=== PATIENT | male | born 1995 | race Caucasian/White ===

== ENCOUNTER 2018-08-05 00:13 | Inpatient (IN) | payer BC ==
[2018-08-05 01:22] LABS: Urine Appearance Clear; Urine Bilirubin Negative (Negative); Urine Blood Negative (Negative); Urine Color Yellow; Urine Glucose Negative (Negative); Urine Ketones Negative (Negative); Urine Nitrite Negative (Negative); Urine Protein Negative (Negative); Urine Specific Gravity 1.013 (1.010-1.030); Urine Urobilinogen Negative (Negative)
--- NOTE | 2018-08-05 01:23 | ED ---
Psychiatric Complaint - HPI Summary HPI Summary: 22 year old male presents suicidal ideation today. He states that he started to see [facility] for his anxiety. These prescribed him Klonopin. He states he just was fed up with life today and took all his Klonopin today. He states there was 12 in the jar. He denies any alcohol use. Denies any other drug use. This is his first time he states had suicidal attempt. Denies any other substance that he took. He took his normal Wellbutrin today. Denies any homicidal ideation. Has no medical conditions besides anxiety. He says school is not going well. - History Of Current Complaint Chief Complaint: EDSuicidal Time Seen by Provider: 08/05/18 01:15 - Allergies/Home Medications Allergies/Adverse Reactions: Allergies Allergy/AdvReac Type Severity Reaction Status Date / Time No Known Allergies Allergy Verified 08/05/18 00:17 Home Medications: Home Medications Bupropion XL* [Wellbutrin XL *] 150 mg PO DAILY 08/05/18 [History Confirmed ] clonazePAM [Clonazepam] 1 tab PO BID 08/05/18 [History Confirmed 08/05/18] PMH/Surg Hx/FS Hx/Imm Hx Endocrine/Hematology History: Denies: Hx Anticoagulant Therapy Respiratory History: Denies: Hx Asthma Infectious Disease History: No Infectious Disease History: Denies: Traveled Outside the [place] in Last 30 Days - Family History Known Family History: Positive: Non-Contributory - Social History Alcohol Use: Occasionally Substance Use Type: Reports: Marijuana Smoking Status (MU): Never Smoked Tobacco Review of Systems Negative: Fever Negative: Chest Pain Negative: Shortness Of Breath Positive: Depressed All Other Systems Reviewed And Are Negative: Yes Physical Exam Triage Information Reviewed: Yes Vital Signs On Initial Exam: Initial Vitals Temp Pulse Resp BP Pulse Ox 97.8 F 92 18 134/86 96 08/05/18 00:14 08/05/18 00:14 08/05/18 00:14 08/05/18 00:14 08/05/18 00:14 Vital Signs Reviewed: Yes Appearance: Positive: Well-Appearing Skin: Positive: Warm, Dry Head/Face: Positive: Normal Head/Face Inspection Eyes: Positive: Normal, Conjunctiva Clear ENT: Positive: Pharynx normal Respiratory/Lung Sounds: Positive: Clear to Auscultation, Breath Sounds Present Cardiovascular: Positive: Normal, RRR Abdomen Description: Positive: Nontender, Soft Bowel Sounds: Positive: Present Musculoskeletal: Positive: Normal Neurological: Positive: Normal Psychiatric: Positive: Normal Diagnostics - Vital Signs Vital Signs Temp Pulse Resp BP Pulse Ox 08/05/18 00:14 97.8 F 92 18 134/86 96 - Laboratory Result Diagrams: 08/05/18 01:21 08/05/18 01:21 Lab Statement: Any lab studies that have been ordered have been reviewed, and results considered in the medical decision making process. - EKG No standard instances Cardiac Rate: Bradycardia EKG Rhythm: Sinus Bradycardia Summary of EKG Findings: sinus bradycardia, early repolization Course/Dx - Course Course Of Treatment: 22 year old male presents suicidal ideation today. He states that he started to see [facility] for his anxiety. These prescribed him Klonopin. He states he just was fed up with life today and took all his Klonopin today. He states there was 12 in the jar. He denies any alcohol use. Denies any other drug use. This is his first time he states had suicidal attempt. Denies any other substance that he took. He took his normal Wellbutrin today. Denies any homicidal ideation. Has no medical conditions besides anxiety. He says school is not going well. On exam patient is lethargic but arousable. Otherwise normal physical exam. Patient will be signed out to Dr. ibarra pending mental health evaluation. - Differential Dx/Clinical Impression Differential Diagnosis/HQI/PQRI: Positive: Depression, Drug Overdose/ Unintentional, Suicidal Ideation, Suicidal Gesture Provider Diagnosis: Major depressive disorder Discharge - Sign-Out/Discharge Documenting (check all that apply): Sign-Out Patient Signing out patient TO: Gabo Ibarra - Discharge Plan Condition: Stable [facility] [place] Billing Disposition and Condition Condition: STABLE Disposition: Psychiatric Facility [facility] [place]
[2018-08-05 01:32] LABS: Urine Benzodiazepine Screen Presumptive Positive (None Detect); Urine Opiates Screen None Detected (None Detect)
[2018-08-05 01:36] LABS: ABS Basophils 0.1 10^3/ul (0-0.2); ABS Eosinophils 0.3 10^3/ul (0-0.6); ABS Lymphocytes 3.2 10^3/ul (1.0-4.8); ABS Monocytes 0.6 10^3/ul (0-0.8); ABS Neutrophils 5.1 10^3/ul (1.5-7.7); ABS Nucleated RBC 0 10^3/ul; Eosinophil % 2.7 %; Hematocrit 42 % (36-46); Hemoglobin 14.2 g/dL (14.0-18.0); Lymphocyte % 34.8 %; Mean Corpuscular HGB Conc 34 g/dL (31-36); Mean Corpuscular Hemoglobin 28 pg (27-31); Mean Corpuscular Volume 82 fL (80-94); Mean Platelet Volume 7.3 fL (7.4-10.4); Nucleated Red Blood Cells % 0.1; Platelet Count 268 10^3/uL (150-450); Red Blood Count 5.07 10^6 /uL (4.18-5.48); Red Cell Distribution Width 14 % (10.5-15); White Blood Count 9.2 10^3/uL (3.5-10.8)
[2018-08-05 01:53] LABS: ALT 85 U/L (7-52); AST 30 U/L (13-39); Acetaminophen < 15 mcg/mL; Albumin 3.9 g/dL (3.2-5.2); Albumin/Globulin Ratio 1.4 (1-3); Alcohol < 10 mg/dL (<10); Alkaline Phosphatase 56 U/L (34-104); Anion Gap 8 mmol/L (2-11); BUN/Creatinine Ratio 14.5 (8-20); Blood Urea Nitrogen 12 mg/dL (6-24); CO2 Carbon Dioxide 23 mmol/L (22-32); Calcium 8.9 mg/dL (8.6-10.3); Chloride 107 mmol/L (101-111); EGFR African American 142.9 (>60); EGFR Non-African American 118.1 (>60); Globulin 2.8 g/dL (2-4); Glucose 83 mg/dL (70-100); Potassium 3.8 mmol/L (3.5-5.0); Salicylate < 2.50 mg/dL (<30); Sodium 138 mmol/L (135-145); Total Protein 6.7 g/dL (6.4-8.9)
[2018-08-05 02:08] LABS: TSH (Thyroid Stimulating Horm) 3.12 mcIU/mL (0.34-5.60)
[2018-08-05 02:38] LABS: Troponin I 0.01 ng/mL (<0.04)
--- NOTE | 2018-08-05 03:57 | ED ---
Progress - Progress Note Progress Note: Patient is received as a sign out from STANLEY Yi at 0230 08/05/18 shift end pending MHE and disposition of this MH patient. No changes in the status of this MH patient over the course of the shift. The patient will be signed out to Dr. Hart at 0700 08/05/18 shift change pending MHE, and disposition of this MH patient. Course/Dx - Course Course Of Treatment: Patient is received as a sign out from STANLEY Yi at 0230 08/05/18 shift end pending MHE and disposition of this MH patient. No changes in the status of this MH patient over the course of the shift. The patient [place] [address]/05/18 shift change pending MHE and disposition of this patient. - Diagnoses Provider Diagnoses: Major depressive disorder Discharge - Sign-Out/Discharge Documenting (check all that apply): Sign-Out Patient Signing out patient TO: Gracie Hart - Discharge Plan Condition: Stable Disposition: [facility]IATRIC FACILITY[place] – [place], [place] - Billing Disposition and Condition Condition: STABLE Disposition: Psychiatric Facility [facility] [place] - Attestation Statements Document Initiated by Greggibe: Yes Documenting Scribe: LIZZ CAMARENA Provider For Whom Dhara is Documenting (Include Credential): JULY ULLOA MD Scribe Attestation: LIZZ Villasenor scribed for JULY ULLOA MD on 08/10/18 at 0342. Scribe Documentation Reviewed: Yes Provider Attestation: The documentation as recorded by the LIZZ woodson accurately reflects the service I personally performed and the decisions made by , JULY ULLOA MD Status of Scribe Document: Viewed
--- NOTE | 2018-08-05 07:08 | PN ---
ED Flex Patient Progress Note Date of Service: 08/04/18 Subjective: This is a 22 year-old M who is pending admission to [facility] / transfer to another psychiatric facility / discharge to home / or being observed secondary to overdose on klonopin. Pt. examined in room 15 at 0700. He is sleeping comfortably. 1:1 outside of room. Awoke easily without complaints. Objective: Vitals: Most recent vital signs documented below. General NAD Laboratory: Current laboratory results documented below. Assessment: OD Plan: Pending MHE. Vital Signs Temp Pulse Resp BP Pulse Ox 97.8 F 84 17 117/74 92 08/05/18 00:14 08/05/18 03:21 08/05/18 04:00 08/05/18 03:51 08/05/18 03:21 Lab Results - Entire Visit 08/05/18 08/05/18 08/05/18 01:21 01:21 00:58 WBC 9.2 RBC 5.07 Hgb 14.2 Hct 42 MCV 82 MCH 28 MCHC 34 RDW 14 Plt Count 268 MPV 7.3 L Neut % (Auto) 55.5 Lymph % (Auto) 34.8 [place] % (Auto) 6.5 Eos % (Auto) 2.7 Baso % (Auto) 0.5 Absolute Neuts (auto) 5.1 Absolute Lymphs (auto) 3.2 Absolute Monos (auto) 0.6 Absolute Eos (auto) 0.3 Absolute Basos (auto) 0.1 Absolute Nucleated RBC 0 Nucleated RBC % 0.1 Sodium 138 Potassium 3.8 Chloride 107 Carbon Dioxide 23 Anion Gap 8 BUN 12 Creatinine 0.83 Est GFR ( Amer) 142.9 Est GFR (Non-Af Amer) 118.1 BUN/Creatinine Ratio 14.5 Glucose 83 Calcium 8.9 Total Bilirubin 0.40 AST 30 ALT 85 H Alkaline Phosphatase 56 Troponin I 0.01 Total Protein 6.7 Albumin 3.9 Globulin 2.8 Albumin/Globulin Ratio 1.4 TSH 3.12 Urine Color Urine Appearance Urine pH Ur Specific [place] Urine Protein Urine Ketones Urine Blood Urine Nitrate Urine Bilirubin Urine Urobilinogen Ur Leukocyte Esterase Urine Glucose Salicylates < 2.50 Urine Opiates Screen None detected Acetaminophen < 15 Ur Barbiturates Screen None detected Ur Phencyclidine Scrn None detected Ur Amphetamines Screen None detected U Benzodiazepines Scrn Presumptive positive A Urine Cocaine Screen None detected U Cannabinoids Screen Presumptive positive A Serum Alcohol < 10 08/05/18 00:58 WBC RBC Hgb Hct MCV MCH MCHC RDW Plt Count MPV Neut % (Auto) Lymph % (Auto) [place] % (Auto) Eos % (Auto) Baso % (Auto) Absolute Neuts (auto) Absolute Lymphs (auto) Absolute Monos (auto) Absolute Eos (auto) Absolute Basos (auto) Absolute Nucleated RBC Nucleated RBC % Sodium Potassium Chloride Carbon Dioxide Anion Gap BUN Creatinine Est GFR ( Amer) Est GFR (Non-Af Amer) BUN/Creatinine Ratio Glucose Calcium Total Bilirubin AST ALT Alkaline Phosphatase Troponin I Total Protein Albumin Globulin Albumin/Globulin Ratio TSH Urine Color Yellow Urine Appearance Clear Urine pH 5.0 Ur Specific [place] 1.013 Urine Protein Negative Urine Ketones Negative Urine Blood Negative Urine Nitrate Negative Urine Bilirubin Negative Urine Urobilinogen Negative Ur Leukocyte Esterase Negative Urine Glucose Negative Salicylates Urine Opiates Screen Acetaminophen Ur Barbiturates Screen Ur Phencyclidine Scrn Ur Amphetamines Screen U Benzodiazepines Scrn Urine Cocaine Screen U Cannabinoids Screen Serum Alcohol
--- NOTE | 2018-08-05 08:03 | ED ---
Progress - Progress Note Progress Note: Pt is a 22 y/o M signed out from Dr. Scanlon at 0700 on 08/05/18 pending MHE after Klonopin overdose, 12x1mg tabs.. Home Medications Medication Instructions Recorded Confirmed Type Bupropion XL* [Wellbutrin XL *] 150 mg PO DAILY 08/05/18 08/05/18 History clonazePAM [Clonazepam] 1 tab PO BID 08/05/18 08/05/18 History Course/Dx - Course Course Of Treatment: Pt is a 22 y/o M signed out from Dr. Scanlon at 0700 on 08/05 pending MHE. As of 899, the pt is denying SI, and Dr. Loera wanted to speak to his parents. The pt will be involuntarily admitted on a 9.39 status. - Diagnoses Provider Diagnoses: Major depressive disorder Discharge - Sign-Out/Discharge Documenting (check all that apply): Patient Departure, Receiving Sign-Out Receiving patient FROM: Gabo Scanlon - Discharge Plan Condition: Stable [place] [place]illing Disposition and Condition Condition: STABLE Disposition: [place] [facility] [place] Attestation Statements Document Initiated by Greggibe: Yes Documenting Scribe: Tamika Milian Provider For Whom Dhara is Documenting (Include Credential): Dr. Gracie Hart MD. Scribe Attestation: Tamika Villasenor scribed for Dr. Gracie Hart MD. on 08/05/18 at 2132. Scribe Documentation Reviewed: Yes Provider Attestation: The documentation as recorded by the Tamika woodson accurately reflects the service I personally performed and the decisions made by , Dr. Gracie Hart MD. Status of Scribe Document: Viewed
[2018-08-05] MEDS ORDERED: Acetaminophen TAB* 325 MG PO PRN (12:04)
[2018-08-05] MEDS ORDERED: Al Hydrox/Mg Hydrox/Simet LIQ* 30 ML UDC PO PRN (12:04)
[2018-08-06 08:20] LABS: HDL Cholesterol 29.3 mg/dL
[2018-08-06] MEDS: BuPROPion XL* 150 MG TAB.XL PO SCH (08:54)
--- NOTE | 2018-08-06 12:17 | HP ---
H&P (Free Text) History and Physical: Justification for admission: Immediate Safety. CC " I took pills" The patient was brought to [facility] by his roommate after he took the rest of his klonopin pills (#12) in attempt to end his life. He reported access to firearms at home in [place], not at school in [place]. For the last month he reported not hanging out with friends or enjoying doing things outside. He reports feeling the most down he has ever felt. He reported sleeping most the day and lacks energy or motivation to do anything. The patient denied homicidal ideation intent or plan. The patient denied auditory and/ or visual hallucinations. MDD Reported feeling depressed while having diminished interest in hobbies or interests which were present in the past , for most of the time, lasting more than 2 weeks. Reported having crying spells , feeling empty inside, feelings of hopelessness. He reported having decreased concentration and recurrent thoughts of with feeling no purpose in life and thinks he would be better off . Bipolar Denied symptoms of lucia such as having many ideas at once. Denied increased talkativeness where no one can interrupt. Denied feeling irritable most of the time while having an persistent abundance of energy most of the day without the use of energy drinks, stimulants, or recreational drug use. Denied an increase in intensity in goal directed activities. Denied having the decreased need to sleep for days , having prolonged elevated heighted mood , or feeling on top of the world. Denied impulsive risky sexual encounters. Denied spending money recklessly , going on spending sprees wiping out savings. Denied impulsively traveling out of town or country, having super witt, and unrealistic wealth or fame. Anxiety Patient reported anxiety in social settings and fears of what others think of him. Denied having symptoms of anxiety such as having times where heart feels that it is beating out of chest , sweaty palms, or shallow breathing. Denied having uncomfortable or intrusive thoughts. Denied feeling restless, high strung, or worrying too much most of the time. Psychosis Does not endorse hearing things that other people do not hear or seeing things other people do not see. Denied feeling that TV is making references. Denied feeling that people are spying , following , or reading their thoughts. Phobias: Patient denied having excessive fear of a particular thing or situation. Eating disorders: Patient denied having excessive eating habits or feelings of guilt after eating. Denied repeated episodes of self induced vomiting after eating. PTSD Denied flashbacks, nightmares and avoidance of a prior traumatic event. PAST PSYCHIATRIC HISTORY: Prior Diagnosis : Major Depressive Disorder History of past Psychiatric Hospitalizations: No prior psychiatric admission. History of past suicide/homicide attempts : Denied past suicide attempts. Denied past homicidal incidents. Outpatient follow-up: [employer] counseling services with . Medications: Past trials of medications include wellbutrin 150mg daily and klonopin both started a week ago. Guardianship: None. FAMILY HISTORY: - Suicide: Denied family history of suicide. - Mental illness: Denied a history of mental health in immediate family members. - Substance abuse: Denied substance abuse among family members. SUBSTANCE ABUSE HISTORY: Denied using alcohol, tobacco, heroin and cocaine other illicit substances. Denied abusing pills not prescribed . Denied past Substance abuse treatment. -Cannabis: uses once daily for the last couple of years SOCIAL HISTORY: Born in and raised in [place]. Raised by both parents. 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 Single no children and lives on campus at [employer]. No sexual or physical abuse. - Legal history: Denied - service history: Denied PAST MEDICAL HISTORY: Denied heart disease, diabetes, cancer and/ or other medical conditions. Since last week reported having elevated liver enzymes. - Allergies: Denied drug or other allergies. Physical Exam: Please see ED note Mental Status Exam on Admission APPEARANCE : 22 year old male who appears stated age. Patient is malodourous, and appears to have fair hygiene and grooming. BEHAVIOR: Cooperative , calm EYE CONTACT: Fair PSYCHOMOTOR ACTIVITY: No psychomotor agitation or retardation. MOVEMENTS: No abnormal movements observed. SPEECH : Normal rate, rhythm, volume and tone. MOOD : "Sad " AFFECT : Type is depressed Range is blunted with shallow depth Mood congruent, Stable THOUGHT PROCESS: formulated and organized in a logical, linear goal directed manner. No flight of ideas , neologism (made up words) , perseveration , tangential , loose associations , or circumstantiality. THOUGHT CONTENT: no delusions, preoccupations, obsessions, phobias or preoccupations. PERCEPTION: No current auditory or visual hallucinations. Doesnt appear to be responding to internal cues. No evidence of depersonalization , de-realization, or illusions SUICIDALITY Recent suicidal attempt HOMICIDALITY Denied homicidal ideation, intent or plan. Insight/judgment: Poor insight and judgment ORIENTATION: Oriented to self, location, and time. Diagnosis on Admission: Major depressive Disorder, severe. Social Anxiety Disorder. Assessment: 22year old male with history of depression came to the hospital after overdosing on klonopin and was admitted to the B[facility] at [facility]. Plan #Admit to BSU, Q15 minute observation. Start regular diet. Encourage participation in activities on the milieu. #Patient evaluated in ED and was determined by the emergency room Physician to be medically stable for admission to the BSU. # Justification for Admission: For immediate safety per outlined in the [facility] Hy[facility] Code. # Voluntary admission. The patient requires inpatient admission at this time to assure safety, receive treatment and work toward stabilization. # Labs ordered: CBC, CMP, UDS, TSH, HBA1c, TSH, Toxicology screen, Urine analysis, and lipid profile. # Start paxil 10mg and resume wellbutrin 150mg daily # ALT 85 # Medicine team notified of lab and abnormal ekg findings. Repeat of ALT and ordered Hepatitis panel. # Obtain collateral information once release is signed. # Collaboration with Social Work to assist with disposition and after care. Substance Abuse and Tobacco resources not applicable #Goals before discharge include: eradicate suicidal ideation and improve mood. The risks, benefits, and alternative treatment options were discussed as well as of the risks of refusing treatment. After this discussion and an acknowledgement of this understanding was made. A risk/ benefit assessment of treatment was considered and discussed with the patient. When comparing the risks of treatment with the dangers of not receiving treatment, the benefits of treatment outweigh the treatment risks at this time. Risks of suicidal ideation , behavioral changes, dystonia, movement disorders, cardiac conduction changes , serotonin syndrome, metabolic risks and NMS were among some of the risks discussed. 08/05/18 08/05/18 08/05/18 00:58 00:58 01:21 WBC 9.2 RBC 5.07 Hgb 14.2 Hct 42 MCV 82 MCH 28 MCHC 34 RDW 14 Plt Count 268 MPV 7.3 L Neut % (Auto) 55.5 Lymph % (Auto) 34.8 [place] % (Auto) 6.5 Eos % (Auto) 2.7 Baso % (Auto) 0.5 Absolute Neuts (auto) 5.1 Absolute Lymphs (auto) 3.2 Absolute Monos (auto) 0.6 Absolute Eos (auto) 0.3 Absolute Basos (auto) 0.1 Absolute Nucleated RBC 0 Nucleated RBC % 0.1 Sodium Potassium Chloride Carbon Dioxide Anion Gap BUN Creatinine Est GFR ( Amer) Est GFR (Non-Af Amer) BUN/Creatinine Ratio Glucose Hemoglobin A1c Calcium Total Bilirubin AST ALT Alkaline Phosphatase Troponin I Total Protein Albumin Globulin Albumin/Globulin Ratio Triglycerides Cholesterol LDL Cholesterol HDL Cholesterol TSH Urine Color Yellow Urine Appearance Clear Urine pH 5.0 Ur Specific [place] 1.013 Urine Protein Negative Urine Ketones Negative Urine Blood Negative Urine Nitrate Negative Urine Bilirubin Negative Urine Urobilinogen Negative Ur Leukocyte Esterase Negative Urine Glucose Negative Salicylates Urine Opiates Screen None detected Acetaminophen Ur Barbiturates Screen None detected Ur Phencyclidine Scrn None detected Ur Amphetamines Screen None detected U Benzodiazepines Scrn Presumptive positive A Urine Cocaine Screen None detected U Cannabinoids Screen Presumptive positive A Serum Alcohol 08/05/18 08/06/18 08/06/18 01:21 07:41 07:41 WBC RBC Hgb Hct MCV MCH MCHC RDW Plt Count MPV Neut % (Auto) Lymph % (Auto) [place] % (Auto) Eos % (Auto) Baso % (Auto) Absolute Neuts (auto) Absolute Lymphs (auto) Absolute Monos (auto) Absolute Eos (auto) Absolute Basos (auto) Absolute Nucleated RBC Nucleated RBC % Sodium 138 Potassium 3.8 Chloride 107 Carbon Dioxide 23 Anion Gap 8 BUN 12 Creatinine 0.83 Est GFR ( Amer) 142.9 Est GFR (Non-Af Amer) 118.1 BUN/Creatinine Ratio 14.5 Glucose 83 Hemoglobin A1c 5.6 Calcium 8.9 Total Bilirubin 0.40 AST 30 ALT 85 H Alkaline Phosphatase 56 Troponin I 0.01 Total Protein 6.7 Albumin 3.9 Globulin 2.8 Albumin/Globulin Ratio 1.4 Triglycerides 200 Cholesterol 157 LDL Cholesterol 88 HDL Cholesterol 29.3 TSH 3.12 Urine Color Urine Appearance Urine pH Ur Specific [place] Urine Protein Urine Ketones Urine Blood Urine Nitrate Urine Bilirubin Urine Urobilinogen Ur Leukocyte Esterase Urine Glucose Salicylates < 2.50 Urine Opiates Screen Acetaminophen < 15 Ur Barbiturates Screen Ur Phencyclidine Scrn Ur Amphetamines Screen U Benzodiazepines Scrn Urine Cocaine Screen U Cannabinoids Screen Serum Alcohol < 10
[2018-08-06] MEDS: PARoxetine HCL TAB* 10 MG PO SCH (15:23)
[2018-08-06] MEDS: hydrOXYzine HCL TAB* 50 MG PO PRN (17:20)
[2018-08-07] MEDS: BuPROPion XL* 150 MG TAB.XL PO SCH (09:50)
[2018-08-07] MEDS: PARoxetine HCL TAB* 10 MG PO SCH (09:50)
[2018-08-07 11:35] LABS: Hepatitis B Surface Antigen Nonreactive (Nonreactive)
--- NOTE | 2018-08-07 11:45 | PN ---
Subjective - Subjective Date of Service: 08/07/18 Service Type: [id number] Hosp care 35 min high complexity Subjective: Nursing Report: Patient was visible on unit, no chemical restraints or PRNs. Slept overnight without incident. He is attending group activities. CC: "okay Patient was seen and evaluated in his room. The patient reported he feels safe on the unit and is interacting with peers. He reported having an adequate appetite and sleep. The patient reports attending and participating in day groups. Per nursing no behavioral issues or overnight events reported. Patient reported that he is tolerating medications without side effects. Objective - General Observations Appearance: Disheveled, Neat Appears Stated Age: Yes Stature: WNL, Overweight Posture: Slumped Eye Contact: Average Behavior/Activity: WNL - Interaction Observations Attitude Towards Examiner: Cooperative Stated Mood: Dysphoric Affect: Blunted Speech Pattern/Tone: Clear Thought Process: Coherent Perception: WNL Thought Content: WNL Thought Process: Lethality: Passive Wish Hallucination Type: None Delusion Type: None - Cognitive Function Orientation: A&O x 4 Level of Consciousness: Awake Cognition: WNL Judgment Within Normal Limits: No Ability to Make Reasonable Decisions: Mildly Impaired - Medication Compliance Cooperative with Inpatient Medication Regimen: Yes - Group Participation Participates in Group Activities: Partial Assessment - Assessment Merits Inpatient Hospitalization: For Immediate Safety Clinical Impression: 22 year old male presented to the emergency room after suicide attempt of overdosing on klonopin Plan - Plan Treatment Plan: Name: JEANNE MAR Birthdate: 1995 [id number] #Q30, staff pass # Voluntary admission. The patient requires inpatient admission at this time to assure safety, receive treatment and work toward stabilization. Family meeting for Friday # Obtain collateral information once release is signed. # Collaboration with Social Work to assist with disposition and after care. # ALT 90 Lock box for medications and remove firearms Hepatitis panel is negative. Continue current medications increase paxil to 20mg daily Vital Signs Temp Pulse Resp BP Pulse Ox 97.2 F 70 18 125/86 100 08/07/18 07:33 08/07/18 07:33 08/07/18 07:33 08/07/18 07:33 08/07/18 07:33 Laboratory Tests 08/05/18 08/05/18 08/05/18 00:58 00:58 01:21 WBC 9.2 RBC 5.07 Hgb 14.2 Hct 42 MCV 82 MCH 28 MCHC 34 RDW 14 Plt Count 268 MPV 7.3 L Neut % (Auto) 55.5 Lymph % (Auto) 34.8 [place] % (Auto) 6.5 Eos % (Auto) 2.7 Baso % (Auto) 0.5 Absolute Neuts (auto) 5.1 Absolute Lymphs (auto) 3.2 Absolute Monos (auto) 0.6 Absolute Eos (auto) 0.3 Absolute Basos (auto) 0.1 Absolute Nucleated RBC 0 Nucleated RBC % 0.1 Sodium Potassium Chloride Carbon Dioxide Anion Gap BUN Creatinine Est GFR ( Amer) Est GFR (Non-Af Amer) BUN/Creatinine Ratio Glucose Hemoglobin A1c Calcium Total Bilirubin AST ALT Alkaline Phosphatase Troponin I Total Protein Albumin Globulin Albumin/Globulin Ratio Triglycerides Cholesterol LDL Cholesterol HDL Cholesterol TSH Urine Color Yellow Urine Appearance Clear Urine pH 5.0 Ur Specific [place] 1.013 Urine Protein Negative Urine Ketones Negative Urine Blood Negative Urine Nitrate Negative Urine Bilirubin Negative Urine Urobilinogen Negative Ur Leukocyte Esterase Negative Urine Glucose Negative Salicylates Urine Opiates Screen None detected Acetaminophen Ur Barbiturates Screen None detected Ur Phencyclidine Scrn None detected Ur Amphetamines Screen None detected U Benzodiazepines Scrn Presumptive positive A Urine Cocaine Screen None detected U Cannabinoids Screen Presumptive positive A Serum Alcohol Hepatitis A IgM Ab Hep Bs Antigen Hep B Core IgM Ab Hepatitis C Antibody Hepatitis C Ab Index 08/05/18 08/06/18 08/06/18 01:21 07:41 07:41 WBC RBC Hgb Hct MCV MCH MCHC RDW Plt Count MPV Neut % (Auto) Lymph % (Auto) [place] % (Auto) Eos % (Auto) Baso % (Auto) Absolute Neuts (auto) Absolute Lymphs (auto) Absolute Monos (auto) Absolute Eos (auto) Absolute Basos (auto) Absolute Nucleated RBC Nucleated RBC % Sodium 138 Potassium 3.8 Chloride 107 Carbon Dioxide 23 Anion Gap 8 BUN 12 Creatinine 0.83 Est GFR ( Amer) 142.9 Est GFR (Non-Af Amer) 118.1 BUN/Creatinine Ratio 14.5 Glucose 83 Hemoglobin A1c 5.6 Calcium 8.9 Total Bilirubin 0.40 AST 30 ALT 85 H Alkaline Phosphatase 56 Troponin I 0.01 Total Protein 6.7 Albumin 3.9 Globulin 2.8 Albumin/Globulin Ratio 1.4 Triglycerides 200 Cholesterol 157 LDL Cholesterol 88 HDL Cholesterol 29.3 TSH 3.12 Urine Color Urine Appearance Urine pH Ur Specific [place] Urine Protein Urine Ketones Urine Blood Urine Nitrate Urine Bilirubin Urine Urobilinogen Ur Leukocyte Esterase Urine Glucose Salicylates < 2.50 Urine Opiates Screen Acetaminophen < 15 Ur Barbiturates Screen Ur Phencyclidine Scrn Ur Amphetamines Screen U Benzodiazepines Scrn Urine Cocaine Screen U Cannabinoids Screen Serum Alcohol < 10 Hepatitis A IgM Ab Hep Bs Antigen Hep B Core IgM Ab Hepatitis C Antibody Hepatitis C Ab Index 08/07/18 08/07/18 06:58 06:58 WBC RBC Hgb Hct MCV MCH MCHC RDW Plt Count MPV Neut % (Auto) Lymph % (Auto) [place] % (Auto) Eos % (Auto) Baso % (Auto) Absolute Neuts (auto) Absolute Lymphs (auto) Absolute Monos (auto) Absolute Eos (auto) Absolute Basos (auto) Absolute Nucleated RBC Nucleated RBC % Sodium Potassium Chloride Carbon Dioxide Anion Gap BUN Creatinine Est GFR ( Amer) Est GFR (Non-Af Amer) BUN/Creatinine Ratio Glucose Hemoglobin A1c Calcium Total Bilirubin AST ALT 90 H Alkaline Phosphatase Troponin I Total Protein Albumin Globulin Albumin/Globulin Ratio Triglycerides Cholesterol LDL Cholesterol HDL Cholesterol TSH Urine Color Urine Appearance Urine pH Ur Specific [place] Urine Protein Urine Ketones Urine Blood Urine Nitrate Urine Bilirubin Urine Urobilinogen Ur Leukocyte Esterase Urine Glucose Salicylates Urine Opiates Screen Acetaminophen Ur Barbiturates Screen Ur Phencyclidine Scrn Ur Amphetamines Screen U Benzodiazepines Scrn Urine Cocaine Screen U Cannabinoids Screen Serum Alcohol Hepatitis A IgM Ab Nonreactive Hep Bs Antigen Nonreactive Hep B Core IgM Ab Nonreactive Hepatitis C Antibody Nonreactive Hepatitis C Ab Index 0.0 Continued Medication Management: Continue Outpt Medication Medications: Current Medications Acetaminophen (Tylenol Tab*) 650 mg PO Q4H PRN PRN Reason: for pain; or Temp >101 F Al Hydrox/Mg Hydrox/Simethicone (Maalox Plus*) 30 ml PO Q4H PRN PRN Reason: INDIGESTION Bupropion HCl (Wellbutrin Xl *) 150 mg PO DAILY [facility] Last Admin: 08/07/18 09:50 Dose: 150 mg Hydroxyzine HCl (Atarax Tab*) 50 mg PO Q6H PRN PRN Reason: ANXIETY Last Admin: 08/06/18 17:20 Dose: 50 mg Paroxetine HCl (Paxil Tab*) 10 mg PO DAILY [facility]ANE Last Admin: 08/07/18 09:50 Dose: 10 mg - Discharge Plan Discharge Plan: Inpatient Hospitalization
[2018-08-07 12:01] LABS: Hepatitis C Antibody Nonreactive (Nonreactive)
[2018-08-08] MEDS: BuPROPion XL* 150 MG TAB.XL PO SCH (10:23)
[2018-08-08] MEDS: PARoxetine HCL TAB* 20 MG PO SCH (10:23)
[2018-08-09] MEDS: BuPROPion XL* 150 MG TAB.XL PO SCH (09:03)
[2018-08-09] MEDS: PARoxetine HCL TAB* 20 MG PO SCH (09:03)
--- NOTE | 2018-08-09 17:24 | PN ---
Subjective - Subjective Date of Service: 08/09/18 Service Type: 50858 Hosp care 15 min low complexity Subjective: Jeanne didn't have any psychiatric complaints today and denies mood, thoughts or perceptual disturbances. Couldn't sleep well last night due to thinking too much. Denies SI or HI. Taking and tolerating meds well. Objective - General Observations Appearance: Neat, Well Groomed Appears Stated Age: Yes Stature: WNL Posture: WNL Eye Contact: Average Behavior/Activity: WNL - Interaction Observations Attitude Towards Examiner: Cooperative Stated Mood: Euthymic Affect: Full Speech Pattern/Tone: Clear, Appropriate, Normal Volume Thought Process: Coherent, Goal Directed Perception: WNL Thought Content: WNL Hallucination Type: None Delusion Type: None - Cognitive Function Orientation: A&O x 4 Level of Consciousness: Awake, Alert Cognition: WNL Estimated Intelligence: Normal Insight: WNL Judgment Within Normal Limits: Yes - Medication Compliance Cooperative with Inpatient Medication Regimen: Yes - Group Participation Participates in Group Activities: Yes Assessment - Assessment Merits Inpatient Hospitalization: Consolidate Improvements, For Discharge Planning Clinical Impression: 22 year old male presented to the emergency room after suicide attempt of overdosing on klonopin Plan - Plan Treatment Plan: Name: JEANNE MAR Birthdate: 1995 [id number] #Q30, staff pass # Voluntary admission. The patient requires inpatient admission at this time to assure safety, receive treatment and work toward stabilization. Family meeting for Friday # Obtain collateral information once release is signed. # Collaboration with Social Work to assist with disposition and after care. # ALT 90 Lock box for medications and remove firearms Hepatitis panel is negative. Continue current medications increase paxil to 20mg daily Vital Signs Temp Pulse Resp BP Pulse Ox 97.2 F 70 18 125/86 100 08/07/18 07:33 08/07/18 07:33 08/07/18 07:33 08/07/18 07:33 08/07/18 07:33 Laboratory Tests 08/05/18 08/05/18 08/05/18 00:58 00:58 01:21 WBC 9.2 RBC 5.07 Hgb 14.2 Hct 42 MCV 82 MCH 28 MCHC 34 RDW 14 Plt Count 268 MPV 7.3 L Neut % (Auto) 55.5 Lymph % (Auto) 34.8 [place] % (Auto) 6.5 Eos % (Auto) 2.7 Baso % (Auto) 0.5 Absolute Neuts (auto) 5.1 Absolute Lymphs (auto) 3.2 Absolute Monos (auto) 0.6 Absolute Eos (auto) 0.3 Absolute Basos (auto) 0.1 Absolute Nucleated RBC 0 Nucleated RBC % 0.1 Sodium Potassium Chloride Carbon Dioxide Anion Gap BUN Creatinine Est GFR ( Amer) Est GFR (Non-Af Amer) BUN/Creatinine Ratio Glucose Hemoglobin A1c Calcium Total Bilirubin AST ALT Alkaline Phosphatase Troponin I Total Protein Albumin Globulin Albumin/Globulin Ratio Triglycerides Cholesterol LDL Cholesterol HDL Cholesterol TSH Urine Color Yellow Urine Appearance Clear Urine pH 5.0 Ur Specific [place] 1.013 Urine Protein Negative Urine Ketones Negative Urine Blood Negative Urine Nitrate Negative Urine Bilirubin Negative Urine Urobilinogen Negative Ur Leukocyte Esterase Negative Urine Glucose Negative Salicylates Urine Opiates Screen None detected Acetaminophen Ur Barbiturates Screen None detected Ur Phencyclidine Scrn None detected Ur Amphetamines Screen None detected U Benzodiazepines Scrn Presumptive positive A Urine Cocaine Screen None detected U Cannabinoids Screen Presumptive positive A Serum Alcohol Hepatitis A IgM Ab Hep Bs Antigen Hep B Core IgM Ab Hepatitis C Antibody Hepatitis C Ab Index 08/05/18 08/06/18 08/06/18 01:21 07:41 07:41 WBC RBC Hgb Hct MCV MCH MCHC RDW Plt Count MPV Neut % (Auto) Lymph % (Auto) [place] % (Auto) Eos % (Auto) Baso % (Auto) Absolute Neuts (auto) Absolute Lymphs (auto) Absolute Monos (auto) Absolute Eos (auto) Absolute Basos (auto) Absolute Nucleated RBC Nucleated RBC % Sodium 138 Potassium 3.8 Chloride 107 Carbon Dioxide 23 Anion Gap 8 BUN 12 Creatinine 0.83 Est GFR ( Amer) 142.9 Est GFR (Non-Af Amer) 118.1 BUN/Creatinine Ratio 14.5 Glucose 83 Hemoglobin A1c 5.6 Calcium 8.9 Total Bilirubin 0.40 AST 30 ALT 85 H Alkaline Phosphatase 56 Troponin I 0.01 Total Protein 6.7 Albumin 3.9 Globulin 2.8 Albumin/Globulin Ratio 1.4 Triglycerides 200 Cholesterol 157 LDL Cholesterol 88 HDL Cholesterol 29.3 TSH 3.12 Urine Color Urine Appearance Urine pH Ur Specific [place] Urine Protein Urine Ketones Urine Blood Urine Nitrate Urine Bilirubin Urine Urobilinogen Ur Leukocyte Esterase Urine Glucose Salicylates < 2.50 Urine Opiates Screen Acetaminophen < 15 Ur Barbiturates Screen Ur Phencyclidine Scrn Ur Amphetamines Screen U Benzodiazepines Scrn Urine Cocaine Screen U Cannabinoids Screen Serum Alcohol < 10 Hepatitis A IgM Ab Hep Bs Antigen Hep B Core IgM Ab Hepatitis C Antibody Hepatitis C Ab Index 08/07/18 08/07/18 06:58 06:58 WBC RBC Hgb Hct MCV MCH MCHC RDW Plt Count MPV Neut % (Auto) Lymph % (Auto) [place] % (Auto) Eos % (Auto) Baso % (Auto) Absolute Neuts (auto) Absolute Lymphs (auto) Absolute Monos (auto) Absolute Eos (auto) Absolute Basos (auto) Absolute Nucleated RBC Nucleated RBC % Sodium Potassium Chloride Carbon Dioxide Anion Gap BUN Creatinine Est GFR ( Amer) Est GFR (Non-Af Amer) BUN/Creatinine Ratio Glucose Hemoglobin A1c Calcium Total Bilirubin AST ALT 90 H Alkaline Phosphatase Troponin I Total Protein Albumin Globulin Albumin/Globulin Ratio Triglycerides Cholesterol LDL Cholesterol HDL Cholesterol TSH Urine Color Urine Appearance Urine pH Ur Specific [place] Urine Protein Urine Ketones Urine Blood Urine Nitrate Urine Bilirubin Urine Urobilinogen Ur Leukocyte Esterase Urine Glucose Salicylates Urine Opiates Screen Acetaminophen Ur Barbiturates Screen Ur Phencyclidine Scrn Ur Amphetamines Screen U Benzodiazepines Scrn Urine Cocaine Screen U Cannabinoids Screen Serum Alcohol Hepatitis A IgM Ab Nonreactive Hep Bs Antigen Nonreactive Hep B Core IgM Ab Nonreactive Hepatitis C Antibody Nonreactive Hepatitis C Ab Index 0.0 Continued Medication Management: Continue Outpt Medication Medications: Current Medications Acetaminophen (Tylenol Tab*) 650 mg PO Q4H PRN PRN Reason: for pain; or Temp >101 F Al Hydrox/Mg Hydrox/Simethicone (Maalox Plus*) 30 ml PO Q4H PRN PRN Reason: INDIGESTION Bupropion HCl (Wellbutrin Xl *) 150 mg PO DAILY [facility] Last Admin: 08/09/18 09:03 Dose: 150 mg Hydroxyzine HCl (Atarax Tab*) 50 mg PO Q6H PRN PRN Reason: ANXIETY Last Admin: 08/06/18 17:20 Dose: 50 mg Paroxetine HCl (Paxil Tab*) 20 mg PO DAILY [facility]ANE Last Admin: 08/09/18 09:03 Dose: 20 mg - Discharge Plan Discharge Plan: Outpatient Follow Up Outpatient Program: [facility]
[2018-08-09] MEDS: hydrOXYzine HCL TAB* 50 MG PO PRN (22:19)
[2018-08-10] MEDS: BuPROPion XL* 150 MG TAB.XL PO SCH (09:48)
[2018-08-10] MEDS: PARoxetine HCL TAB* 20 MG PO SCH (09:48)
--- NOTE | 2018-08-10 15:00 | PN ---
Subjective - Subjective Date of Service: 08/10/18 Service Type: 79399 Hosp care 35 min high complexity Subjective: Nursing Report: Patient was visible on unit, no chemical restraints or PRNs. Slept overnight without incident. He is attending group activities. CC: "alright" Patient reports that his depression has gotten better but that his anxiety has increased. Patient was seen and evaluated in the common room. The patient reported he feels safe on the unit and is interacting with peers. He reported having an adequate appetite and sleep. The patient reports attending and participating in day groups. Per nursing no behavioral issues or overnight events reported. Patient reported that he is tolerating medications without side effects. He denied homicidal ideation intent or plan. He denied auditory and or visual hallucinations. Objective - General Observations Appearance: Disheveled Appears Stated Age: Yes Stature: Overweight Posture: Slumped Eye Contact: Average Behavior/Activity: WNL - Interaction Observations Attitude Towards Examiner: Cooperative Stated Mood: Dysphoric Affect: Blunted Speech Pattern/Tone: Clear Thought Process: Coherent Thought Content: WNL Thought Process: Lethality: Passive Wish Hallucination Type: None Delusion Type: None - Cognitive Function Orientation: A&O x 4 Level of Consciousness: Awake Cognition: WNL Judgment Within Normal Limits: No Ability to Make Reasonable Decisions: Mildly Impaired - Medication Compliance Cooperative with Inpatient Medication Regimen: Yes - Group Participation Participates in Group Activities: Yes Assessment - Assessment Merits Inpatient Hospitalization: For Immediate Safety Clinical Impression: 22 year old male presented to the emergency room after suicide attempt of overdosing on klonopin Plan - Plan Treatment Plan: Name: JEANNE MAR Birthdate: 1995 [id number] #Q30, staff pass # Voluntary admission. The patient requires inpatient admission at this time to assure safety, receive treatment and work toward stabilization. Family meeting for Friday # Obtain collateral information once release is signed. # Collaboration with Social Work to assist with disposition and after care. # ALT 90 Lock box for medications and remove firearms Hepatitis panel is negative. Increase paxil to 30mg daily Vital Signs Temp Pulse Resp BP Pulse Ox 97.6 F 79 16 121/79 100 08/08/18 07:43 08/08/18 07:43 08/08/18 14:28 08/08/18 07:43 08/08/18 07:43 Laboratory Tests 0408/05/18 08/05/18 00:58 00:58 01:21 WBC 9.2 RBC 5.07 Hgb 14.2 Hct 42 MCV 82 MCH 28 MCHC 34 RDW 14 Plt Count 268 MPV 7.3 L Neut % (Auto) 55.5 Lymph % (Auto) 34.8 [place] % (Auto) 6.5 Eos % (Auto) 2.7 Baso % (Auto) 0.5 Absolute Neuts (auto) 5.1 Absolute Lymphs (auto) 3.2 Absolute Monos (auto) 0.6 Absolute Eos (auto) 0.3 Absolute Basos (auto) 0.1 Absolute Nucleated RBC 0 Nucleated RBC % 0.1 Sodium Potassium Chloride Carbon Dioxide Anion Gap BUN Creatinine Est GFR ( Amer) Est GFR (Non-Af Amer) BUN/Creatinine Ratio Glucose Hemoglobin A1c Calcium Total Bilirubin AST ALT Alkaline Phosphatase Troponin I Total Protein Albumin Globulin Albumin/Globulin Ratio Triglycerides Cholesterol LDL Cholesterol HDL Cholesterol TSH Urine Color Yellow Urine Appearance Clear Urine pH 5.0 Ur Specific [place] 1.013 Urine Protein Negative Urine Ketones Negative Urine Blood Negative Urine Nitrate Negative Urine Bilirubin Negative Urine Urobilinogen Negative Ur Leukocyte Esterase Negative Urine Glucose Negative Salicylates Urine Opiates Screen None detected Acetaminophen Ur Barbiturates Screen None detected Ur Phencyclidine Scrn None detected Ur Amphetamines Screen None detected U Benzodiazepines Scrn Presumptive positive A Urine Cocaine Screen None detected U Cannabinoids Screen Presumptive positive A Serum Alcohol Hepatitis A IgM Ab Hep Bs Antigen Hep B Core IgM Ab Hepatitis C Antibody Hepatitis C Ab Index 08/05/18 08/06/18 08/06/18 01:21 07:41 07:41 WBC RBC Hgb Hct MCV MCH MCHC RDW Plt Count MPV Neut % (Auto) Lymph % (Auto) [place] % (Auto) Eos % (Auto) Baso % (Auto) Absolute Neuts (auto) Absolute Lymphs (auto) Absolute Monos (auto) Absolute Eos (auto) Absolute Basos (auto) Absolute Nucleated RBC Nucleated RBC % Sodium 138 Potassium 3.8 Chloride 107 Carbon Dioxide 23 Anion Gap 8 BUN 12 Creatinine 0.83 Est GFR ( Amer) 142.9 Est GFR (Non-Af Amer) 118.1 BUN/Creatinine Ratio 14.5 Glucose 83 Hemoglobin A1c 5.6 Calcium 8.9 Total Bilirubin 0.40 AST 30 ALT 85 H Alkaline Phosphatase 56 Troponin I 0.01 Total Protein 6.7 Albumin 3.9 Globulin 2.8 Albumin/Globulin Ratio 1.4 Triglycerides 200 Cholesterol 157 LDL Cholesterol 88 HDL Cholesterol 29.3 TSH 3.12 Urine Color Urine Appearance Urine pH Ur Specific [place] Urine Protein Urine Ketones Urine Blood Urine Nitrate Urine Bilirubin Urine Urobilinogen Ur Leukocyte Esterase Urine Glucose Salicylates < 2.50 Urine Opiates Screen Acetaminophen < 15 Ur Barbiturates Screen Ur Phencyclidine Scrn Ur Amphetamines Screen U Benzodiazepines Scrn Urine Cocaine Screen U Cannabinoids Screen Serum Alcohol < 10 Hepatitis A IgM Ab Hep Bs Antigen Hep B Core IgM Ab Hepatitis C Antibody Hepatitis C Ab Index 08/07/18 08/07/18 06:58 06:58 WBC RBC Hgb Hct MCV MCH MCHC RDW Plt Count MPV Neut % (Auto) Lymph % (Auto) [place] % (Auto) Eos % (Auto) Baso % (Auto) Absolute Neuts (auto) Absolute Lymphs (auto) Absolute Monos (auto) Absolute Eos (auto) Absolute Basos (auto) Absolute Nucleated RBC Nucleated RBC % Sodium Potassium Chloride Carbon Dioxide Anion Gap BUN Creatinine Est GFR ( Amer) Est GFR (Non-Af Amer) BUN/Creatinine Ratio Glucose Hemoglobin A1c Calcium Total Bilirubin AST ALT 90 H Alkaline Phosphatase Troponin I Total Protein Albumin Globulin Albumin/Globulin Ratio Triglycerides Cholesterol LDL Cholesterol HDL Cholesterol TSH Urine Color Urine Appearance Urine pH Ur Specific [place] Urine Protein Urine Ketones Urine Blood Urine Nitrate Urine Bilirubin Urine Urobilinogen Ur Leukocyte Esterase Urine Glucose Salicylates Urine Opiates Screen Acetaminophen Ur Barbiturates Screen Ur Phencyclidine Scrn Ur Amphetamines Screen U Benzodiazepines Scrn Urine Cocaine Screen U Cannabinoids Screen Serum Alcohol Hepatitis A IgM Ab Nonreactive Hep Bs Antigen Nonreactive Hep B Core IgM Ab Nonreactive Hepatitis C Antibody Nonreactive Hepatitis C Ab Index 0.0 Continued Medication Management: Continue Outpt Medication Medications: Current Medications Acetaminophen (Tylenol Tab*) 650 mg PO Q4H PRN PRN Reason: for pain; or Temp >101 F Al Hydrox/Mg Hydrox/Simethicone (Maalox Plus*) 30 ml PO Q4H PRN PRN Reason: INDIGESTION Bupropion HCl (Wellbutrin Xl *) 150 mg PO DAILY [facility] Last Admin: 08/10/18 09:48 Dose: 150 mg Hydroxyzine HCl (Atarax Tab*) 50 mg PO Q6H PRN PRN Reason: ANXIETY Last Admin: 08/09/18 22:19 Dose: 50 mg Paroxetine HCl (Paxil Tab*) 30 mg PO DAILY DUANE - Discharge Plan Discharge Plan: Inpatient Hospitalization
[2018-08-10] MEDS: hydrOXYzine HCL TAB* 50 MG PO PRN (21:14)
[2018-08-11] MEDS: BuPROPion XL* 150 MG TAB.XL PO SCH (08:30)
[2018-08-11] MEDS ORDERED: PARoxetine HCL TAB* 10 MG PO SCH (09:00)
[2018-08-11 10:19] VITALS: BP 135/88
--- NOTE | 2018-08-11 10:57 | DS ---
Subjective - Subjective Service Types: [address] [facility] Day Mgmt complex over 30 min Discharge Date: 08/11/18 Subjective: CC:" I feel ready to go home today" Patient reported that he was looking forward to the [employer] mechanic in a few weeks. He denied thoughts of suicide. He reported feeling less anxious and being ready for discharge. He went for ultrasound of the liver yesterday. Justification for admission: Immediate Safety. CC " I took pills" The patient was brought to [facility] by his roommate after he took the rest of his klonopin pills (#12) in attempt to end his life. He reported access to firearms at home in [place], not at school in [place]. For the last month he reported not hanging out with friends or enjoying doing things outside. He reports feeling the most down he has ever felt. He reported sleeping most the day and lacks energy or motivation to do anything. The patient denied homicidal ideation intent or plan. The patient denied auditory and/ or visual hallucinations. MDD Reported feeling depressed while having diminished interest in hobbies or interests which were present in the past , for most of the time, lasting more than 2 weeks. Reported having crying spells , feeling empty inside, feelings of hopelessness. He reported having decreased concentration and recurrent thoughts of with feeling no purpose in life and thinks he would be better off . Bipolar Denied symptoms of lucia such as having many ideas at once. Denied increased talkativeness where no one can interrupt. Denied feeling irritable most of the time while having an persistent abundance of energy most of the day without the use of energy drinks, stimulants, or recreational drug use. Denied an increase in intensity in goal directed activities. Denied having the decreased need to sleep for days , having prolonged elevated heighted mood , or feeling on top of the world. Denied impulsive risky sexual encounters. Denied spending money recklessly , going on spending sprees wiping out savings. Denied impulsively traveling out of town or country, having super witt, and unrealistic wealth or fame. Anxiety Patient reported anxiety in social settings and fears of what others think of him. Denied having symptoms of anxiety such as having times where heart feels that it is beating out of chest , sweaty palms, or shallow breathing. Denied having uncomfortable or intrusive thoughts. Denied feeling restless, high strung, or worrying too much most of the time. Psychosis Does not endorse hearing things that other people do not hear or seeing things other people do not see. Denied feeling that TV is making references. Denied feeling that people are spying , following , or reading their thoughts. Phobias: Patient denied having excessive fear of a particular thing or situation. Eating disorders: Patient denied having excessive eating habits or feelings of guilt after eating. Denied repeated episodes of self induced vomiting after eating. PTSD Denied flashbacks, nightmares and avoidance of a prior traumatic event. PAST PSYCHIATRIC HISTORY: Prior Diagnosis : Major Depressive Disorder History of past Psychiatric Hospitalizations: No prior psychiatric admission. History of past suicide/homicide attempts : Denied past suicide attempts. Denied past homicidal incidents. Outpatient follow-up: [employer] [facility] counseling services with . Medications: Past trials of medications include wellbutrin 150mg daily and klonopin both started a week ago. Guardianship: None. FAMILY HISTORY: - Suicide: Denied family history of suicide. - Mental illness: Denied a history of mental health in immediate family members. - Substance abuse: Denied substance abuse among family members. SUBSTANCE ABUSE HISTORY: Denied using alcohol, tobacco, heroin and cocaine other illicit substances. Denied abusing pills not prescribed . Denied past Substance abuse treatment. -Cannabis: uses once daily for the last couple of years SOCIAL HISTORY: Born in and raised in [facility]. Raised by both parents. 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 Single no children and lives on campus at [employer]. No sexual or physical abuse. - Legal history: Denied - service history: Denied PAST MEDICAL HISTORY: Denied heart disease, diabetes, cancer and/ or other medical conditions. Since last week reported having elevated liver enzymes. - Allergies: Denied drug or other allergies. Physical Exam: Please see ED note Mental Status Exam on Admission APPEARANCE : 22 year old male who appears stated age. Patient is malodourous, and appears to have fair hygiene and grooming. BEHAVIOR: Cooperative , calm EYE CONTACT: Fair PSYCHOMOTOR ACTIVITY: No psychomotor agitation or retardation. MOVEMENTS: No abnormal movements observed. SPEECH : Normal rate, rhythm, volume and tone. MOOD : "Sad " AFFECT : Type is depressed Range is blunted with shallow depth Mood congruent, Stable THOUGHT PROCESS: formulated and organized in a logical, linear goal directed manner. No flight of ideas , neologism (made up words) , perseveration , tangential , loose associations , or circumstantiality. THOUGHT CONTENT: no delusions, preoccupations, obsessions, phobias or preoccupations. PERCEPTION: No current auditory or visual hallucinations. Doesnt appear to be responding to internal cues. No evidence of depersonalization , de-realization, or illusions SUICIDALITY Recent suicidal attempt HOMICIDALITY Denied homicidal ideation, intent or plan. Insight/judgment: Poor insight and judgment ORIENTATION: Oriented to self, location, and time. Diagnosis on Admission: Major depressive Disorder, severe. Social Anxiety Disorder. Diagnosis on Discharge:Major depressive Disorder, partial remission . Social Anxiety Disorder. Condition at the time of discharge: At the time of discharge patient showed improvement of sleep and appetite. The patient was not a danger to self or others. The patient denied suicidal ideation , intent or plan. The patient denied homicidal targets, ideation, intent or plan. This patient participated in psychosocial rehabilitation and gained some insight into problems. The patient gained insight into mental illness, triggers, and treatment. The patient took medication as prescribed. The patient denied side effects of medication and objective signs of side effects were not evident. Therapy Resources were offered to the patient. Patient was given a supply of prescriptions at the time of discharge. The patient plans to attend follow up care with the follow up arrangements that were discussed and put in place. Patient was asked to keep appointments as scheduled, take medication as prescribed, have routine follow up care with their primary care physician and refrain from any use of alcohol or drugs. Objective - General Observations Appearance: Neat Appears Stated Age: Yes Stature: Overweight Posture: Slumped Eye Contact: Average Behavior/Activity: WNL - Interaction Observations Attitude Towards Examiner: Cooperative Affect: Full Speech Pattern/Tone: Clear Thought Process: Coherent Perception: WNL Thought Content: WNL Hallucination Type: None Delusion Type: None - Cognitive Function Orientation: A&O x 4 Level of Consciousness: Awake Cognition: WNL Estimated Intelligence: Normal Insight: WNL Judgment Within Normal Limits: Yes - Medication Compliance Cooperative with Inpatient Medication Regimen: Yes - Group Participation Participates in Group Activities: Yes Treatment Course & Assessment Clinical Course & Impression: Hospital course part A: 22 year old male presented to the emergency room after suicide attempt of overdosing on [facility] course part B: Labs ordered included CBC, CMP, UDS, TSH, HBA1c, TSH, Toxicology screen, Urine analysis, and lipid profile. Liver ultrasound was performed for increased ALT was 90 on 08/07/18. Liver ultrasound showed fatty infiltration with patchy areas of sparing. Vital signs were monitored during the course of admission. Patient was advised to inform his PCP of this and continue to follow his liver enzymes as medications as well as other pathologic reason can cause this. EKG ordered and the hospital consult team was informed of findings and did not have further recommendations. Hepatitis panel ordered and was negative. The patient was admitted to the adult behavioral unit and placed on 15 minute check for safety. At a later time the patient was on Q30 minute observation and staff pass privileges. With those limits being extended , there were no occurrence of behavioral incidents. The patient did well on the unit and went to groups. Interacted with peers had adequate sleep and regular appetite. Tolerated medication changes without side effects. Group therapy and services were offered. The risks, benefits, and alternative treatment options were discussed as well as of the risks of refusing treatment. Treatment associated risks discussed. After this discussion and made an acknowledgement of this understanding. Follow up care appointments were put in place for follow up care. Improvements in patient from the time of admission include: Improved affect, sleep and decrease in anxiety. No longer suicidal and no longer having feelings of hopelessness. The patient expressed readiness for discharge home. The patient presents with a broader range of affect, and the absence of depressed mood, delusions, perceptual disturbances. The patient denied suicidal and or homicidal ideation intent or plan. Overall, the patient responded well to inpatient treatment as evidenced by their report of strengthening of coping mechanisms, reduced distress, and more positive outlook on circumstances. Of note there was an improvement of recognizing how emotional state can effect mood and behavior. Safety precautions were put in place which included involving the patient and their family to closely monitor for changes in mental state. In addition, implementing follow up care, screening for the need to remove/securing firearms , weapons and stockpile of medications. Warning signs discussed with family. Patient/ family instructed to immediately call 911 should any safety concerns arise. The patient was advised of the 24 hour / 7 days a week availability of the emergency room and to call 911 in the event of an emergency such as being suicidal and/ or homicidal. The patient was informed of the contact information for [facility], Suicide Prevention and Crisis Services, National Suicide Prevention Lifeline, [facility], Alcoholics Anonymous, and [facility]. Medications started included wellbutrin 150mg daily and Paxil 30mg daily. Family meeting took place and are in agreement with discharge plan. 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 Patient will be discharged to his parents home. His parents confirmed that all firearms are locked and out his access. They plan to monitor medications and distribute them to assure safety measures. Prescriptions were called into [facility] pharmacy in [facility] . A 30 day supply with no refills was provided of Paxil 30mg daily and wellbutrin 150mg daily. He was continued on wellbutrin in conjunction with paxil due to being activating a major complaint and feature of depression that he reported. Paxil was also started for anxiety namely social anxiety and he showed positive clinical response. He plans to take a medical leave and will decide if he would like to continue at [facility] or transfer. Klonopin was discontinued and not resumed. Follow up appointment with Dr. Will Kilgore 08/17/18 at 230pm and Therapy with Heath Herrera 08/15/18 12:15pm He will follow up with Radha Puga his corrections caseworker. Patient informed of follow up appointment times. See more details for follow of care in discharge plan. Risk factors: Age, single, history of depression, recent suicide attempt Protective factors: Currently no suicidal ideation, intent or plan. Has strong support system. No history of service. Currently no feelings of hopelessness, not in an occupation of social isolation, doesnt have multiple medical conditions, no family history of suicide, doesnt have access to firearms. Doesnt have command hallucinations and or psychotic features at this time. No history of substance abuse. No history of alcohol abuse. Not a anniversary of a loss of a loved one. No changes in relationship status, housing, job, or school. Currently future orientated. Patient engaged in treatment and compliant with medication. Sodium 138 mmol/L (135-145) 08/05/18 01:21 Potassium 3.8 mmol/L (3.5-5.0) 08/05/18 01:21 BUN 12 mg/dL (6-24) 08/05/18 01:21 Creatinine 0.83 mg/dL (0.67-1.17) 08/05/18 01:21 Hemoglobin A1c 5.6 % (4.0-5.6) 08/06/18 07:41 Calcium 8.9 mg/dL (8.6-10.3) 08/05/18 01:21 AST 30 U/L (13-39) 08/05/18 01:21 ALT 90 U/L (7-52) H 08/07/18 06:58 Triglycerides 200 mg/dL 08/06/18 07:41 Cholesterol 157 mg/dL 08/06/18 07:41 LDL Cholesterol 88 mg/dL 08/06/18 07:41 Vital Signs Temp Pulse Resp BP Pulse Ox 96.6 F 109 17 135/88 98 08/11/18 07:46 08/11/18 07:46 08/11/18 07:46 08/11/18 07:46 08/11/18 07:46 Merits Inpatient Hospitalization: No Clear for Discharge: Adequate Clinical Respons Discharge Planning - Discharge Planning Discharge Plan: Outpatient Follow Up Outpatient Program: Private Clinician(s) Recommendations for Continuing Care: Medication Management Medications: Current Medications Acetaminophen (Tylenol Tab*) 650 mg PO Q4H PRN PRN Reason: for pain; or Temp >101 F Al Hydrox/Mg Hydrox/Simethicone (Maalox Plus*) 30 ml PO Q4H PRN PRN Reason: INDIGESTION Bupropion HCl (Wellbutrin Xl *) 150 mg PO DAILY DUANE Last Admin: 08/11/18 08:30 Dose: 150 mg Hydroxyzine HCl (Atarax Tab*) 50 mg PO Q6H PRN PRN Reason: ANXIETY Last Admin: 08/10/18 21:14 Dose: 50 mg Paroxetine HCl (Paxil Tab*) 30 mg PO DAILY DUANE Last Admin: 08/11/18 08:30 Dose: 30 mg Discharge Planning: Prescriptions provided for discharge [x] Yes [] No Follow up care details as per social work arrangements. Patient response to discharge plan: [] eager for discharge [x] agreeable with discharge plan [] ambivalent about discharge [] disagrees with discharge today
== END 2018-08-11 11:50 | disposition home or self-care (01) | DRG 751 ==
LOC: ED 00:13 → BSU 12:04
PROVIDERS: ADMIT Psychiatry & Neurology Psychiatry; ATTEND Psychiatry & Neurology Psychiatry
DX: F33.2 Major depressive disorder, recurrent severe without psychotic features (principal); R45.851 Suicidal ideations; F40.10 Social phobia, unspecified; Z79.899 Other long term (current) drug therapy
CPT/HCPCS: 36415; 76705; 80053; 80061; 80074; 80307; 80320; 80329; 81003; 83036; 84443; 84460; 84484; 85025; 93005; 99222; 99231; 99233; 99238; 99285; A9270-GY; G0480